=== PATIENT | male | born 1995 | race Caucasian/White ===

== ENCOUNTER 2017-07-23 09:43 | Emergency (ER) | payer BC ==
[~2017-07-23] VITALS: Ht 175.3 cm; Wt 79.4 kg
[2017-07-23 09:45] VITALS: BP 154/80
[2017-07-23] MEDS ORDERED: HYDR-971 PO (10:01)
[2017-07-23] MEDS ORDERED: NAPR-683 PO (10:01)
--- NOTE | 2017-07-23 10:06 | PHYS DOC ---
General Chief Complaint: LOWER EXT PAIN Stated Complaint: LOWER EXTREMITY PAIN Time Seen by MD: 09:45 Source: patient Exam Limitations: no limitations Problems: History of Present Illness Initial Comments Patient is 22-year-old male who comes to the ED complaining of right knee pain. Patient states that yesterday while walking he felt a pop followed by sharp pain in his right knee. He denies twisting or falling and has had no prior right knee issues. His right knee was sore after that, today he was walking down some stairs when he felt a pop in his knee tried to give out again. He does not have a PCP he left work to come here for evaluation. He denies numbness tingling weakness or radiating symptoms, states that he did not actually fall and has no other injuries. He doesn't notice any extra movement in the knee and has no swelling or bruising. He is able to bear weight on it pain is described as sharp and achy mild at rest and more severe with jarring and movement. Onset: yesterday Severity: moderate Pain/Injury Location: right knee Method of Injury: other Modifying Factors: worse with jarring, worse with movement, improves with rest Allergies: Coded Allergies: No Known Drug Allergies (Unverified , 07/23/17) Past Medical History Medical History: no pertinent history Surgical History: noncontributory Social History Smoker: cigarettes Alcohol: none Drugs: none Review of Systems Constitutional: denies chills, denies fever Respiratory: denies cough, denies shortness of breath Cardiovascular: denies chest pain, denies palpitations Gastrointestinal: denies abdominal pain, denies nausea, denies vomiting Musculoskeletal: see HPI Psychiatric/Neurological: see HPI Physical Exam General Appearance: WD/WN, no apparent distress Cardiovascular/Respiratory: normal peripheral pulses, no respiratory distress Knees: left knee non-tender, left knee normal inspection, bilateral knee normal range of motion, right knee other (no swelling or skin changes, there is lateral joint line tenderness and mild LCL tenderness. Collateral ligaments as well as cruciate ligaments are intact there is no bony tenderness or palpable bony deformities. The extremity is neurovascularly intact and no tendon deficit noted.) Neurologic/Tendon: normal sensation, normal motor functions, normal tendon functions, responds to pain, no evidence tendon injury Psychiatric: alert, oriented x 3 Skin: normal color, warm/dry Orders, Labs, Meds Patient is in agreement that plain films would be of little benefit as no actual trauma took place. 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 I discussed the likelihood of a lateral meniscus tear and conservative treatment. He will need follow-up with a PCP if symptoms did not improve as MRI may ultimately be necessary. Discussed [id number] prescription medications and his questions were answered expressed agreement and understanding of treatment plan. He was advised to stop smoking. Departure Time of Disposition: 10:03 Disposition: 01 HOME, SELF-CARE Diagnosis: Internal Derangement right knee NOS Condition: GOOD Patient Instructions: Knee - Cartilage (Meniscus) Injury, RICE - Routine Care for Injuries, [id number] Additional Instructions: As discussed is likely you have a tear or partial tear of the lateral meniscus. RICE, see handout. Wear knee immobilizer when you have to be up and ambulating. Avoid prolonged standing or walking for faster improvement in symptoms and to prevent further injury. Prescription: Naprosyn, Bigfoot 5 mg quantity 10 As discussed, if symptoms do not improve within 10-14 days you may need an MRI evaluation. Follow-up with a doctor in 2 weeks if not better. Return to ED with new or changing symptoms. RUSSEL VALENCIA DO Jul 23, 2017 10:06
== END 2017-07-23 10:16 | disposition home or self-care (01) ==
LOC: ER 09:43
DX: M23.91 Unspecified internal derangement of right knee (principal); F17.210 Nicotine dependence, cigarettes, uncomplicated; X50.9XXA Other and unspecified overexertion or strenuous movements or postures, initial encounter; Y93.01 Activity, walking, marching and hiking; Y99.8 Other external cause status; Y92.89 Other specified places as the place of occurrence of the external cause
CPT/HCPCS: 29505; 99283

== ENCOUNTER 2017-08-05 11:19 | Emergency (ER) | payer BC ==
[~2017-08-05] VITALS: Ht 175.3 cm; Wt 79.4 kg
[~2017-08-05 11:19] MED LIST: HYDR-971 PO; NAPR-683 PO
--- NOTE | 2017-08-05 12:02 | RAD ---
Right hand, 3 views, 08/05/2017: History: Hand pain, injury No fracture or dislocation is identified. There is moderate soft tissue swelling over the dorsum of the hand in the metacarpal region. IMPRESSION: No acute bony abnormality is detected.
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
[2017-08-05 13:23] VITALS: BP 110/78
== END 2017-08-05 13:24 | disposition home or self-care (01) ==
LOC: ER 11:19
DX: S60.221A Contusion of right hand, initial encounter (principal); V86.56XA Driver of dirt bike or motor/cross bike injured in nontraffic accident, initial encounter; Y93.55 Activity, bike riding; Y99.8 Other external cause status; Y92.89 Other specified places as the place of occurrence of the external cause
CPT/HCPCS: 29125; 73130; 99284

== ENCOUNTER 2017-12-20 08:13 | Emergency (ER) | payer SELFPAY ==
[~2017-12-20] VITALS: Ht 177.8 cm; Wt 79.4 kg
[2017-12-20] MEDS ORDERED: CEPH-264 PO (08:39)
[2017-12-20 08:42] VITALS: BP 142/62
--- NOTE | 2017-12-20 10:48 | ED.ADGEN ---
Past History Past Medical History: No Pertinent History Past Surgical History: No Surgical History Alcohol Use: None Drug Use: None Adult General Chief Complaint Chief Complaint Needlestick injury left foot HPI HPI Patient is a 32-year-old who presents with needle stick injury to left foot. Patient was walking in his primary yard when he actually stepped on a needle. Patient was able to remove the needle it is on how long the needle had been in the yard or to whom the needle belonged. [] Review of Systems Review of Systems ROS as per HPI All other systems were reviewed and found to be within normal limits, except as documented in this note. Allergies Allergies Allergies Coded Allergies Type Severity Reaction Last Updated Verified No Known Drug Allergies 07/23/17 No Physical Exam Physical Exam Constitutional: Well developed, well nourished, no acute distress, non-toxic appearance. [] Extremities: Left Plantar forefoot, callus, no abrasion bleeding or foreign body noted to be present. No swelling or redness.[] Neurologic: Alert and oriented X 3, normal motor function, normal sensory function, no focal deficits noted. [] Psychologic: Affect normal, judgement normal, mood normal. [] Current Patient Data Vital Signs Vital Signs Date Time Temp Pulse Resp B/P (MAP) Pulse Ox O2 Delivery O2 Flow Rate FiO2 12/20/17 08:42 98.0 84 20 142/62 (88) 96 EKG EKG [] Radiology/Procedures Radiology/Procedures [] Course & Med Decision Making Course & Med Decision Making Pertinent Labs and Imaging studies reviewed. (See chart for details) [Patient's tetanus status is firm to be up-to-date. I discussed with the patient the small risk of potential hepatitis and HIV exposure. Recommend outpatient testing by PCP in [address] a course of antibiotics for possible infection. ] Final Impression Final Impression [1. needle stick injury] Dragon Disclaimer Dragon Disclaimer This electronic medical record was generated, in whole or in part, using a voice recognition dictation system. TRUDY ZEPEDA DO Dec 20, 2017 10:48
== END 2017-12-20 08:40 | disposition home or self-care (01) ==
LOC: ER 08:13
DX: S99.822A Other specified injuries of left foot, initial encounter (principal); W46.0XXA Contact with hypodermic needle, initial encounter; Y93.89 Activity, other specified; Y99.8 Other external cause status; Y92.89 Other specified places as the place of occurrence of the external cause
CPT/HCPCS: 99283

== ENCOUNTER 2020-07-22 12:20 | Emergency (ER) | payer OTHER ==
[~2020-07-22] VITALS: Ht 177.8 cm; Wt 81.0 kg
[~2020-07-22 12:20] MED LIST changes: +CEPH-264 PO; +HYDR-3165 PO; -HYDR-971 PO
[2020-07-22 12:31] VITALS: BP 138/78
[2020-07-22] MEDS ORDERED: IBUP600T16 PO (12:45)
[2020-07-22] MEDS ORDERED: CYCL-331 PO (12:45)
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
[2020-07-22] MEDS ORDERED: HYDROcodone/APAP 5/325MG 1 TAB TABLET PO ONE (13:00)
[2020-07-22] MEDS ORDERED: KETOROLAC 60 MG/2 ML VIAL. IM ONE (13:00)
[2020-07-22] MEDS ORDERED: methylPREDNISolone ACETATE 80 MG/ML VIAL. IM ONE (13:00)
== END 2020-07-22 13:30 | disposition home or self-care (01) ==
LOC: ER 12:20
DX: M54.42 Lumbago with sciatica, left side (principal)
CPT/HCPCS: 96372; 99283; J1040; J1885

== ENCOUNTER → 2020-08-01 | Outpatient (CLI) | payer OTHER ==
[2020-07-22 12:31] VITALS: BP 138/78
[~2020-08-01] MED LIST changes: +CYCL-331 PO; +IBUP600T16 PO
--- NOTE | 2020-08-01 16:40 | RAD ---
EXAM: Left hip and pelvis, 3 views; lumbar spine, 5 views. HISTORY: Pain. COMPARISON: None. FINDINGS: Pelvis and left hip: A frontal view the pelvis and 2 views left hip are obtained. There is no fractur e, dislocation or subluxation. The femoral heads are normal in configuration. Lumbar spine: 5 views of the lumbar spine are obtained. There is no listhesis. There is minimal anter ior wedging of L1 which is chronic in appearance and likely developmental or degenerative. No acute f racture seen. IMPRESSION: No acute osseous finding. Electronically signed by: Aggie Osuna MD (08/01/2020 4:37 PM) [id number]
== END ==
LOC: RAD 16:14
PROVIDERS: ATTEND Physician Assistant Medical
DX: M25.552 Pain in left hip (principal); M53.3 Sacrococcygeal disorders, not elsewhere classified
CPT/HCPCS: 72110; 73502

== ENCOUNTER 2020-08-23 02:28 | Emergency (ER) | payer OTHER ==
[~2020-08-23] VITALS: Ht 175.3 cm; Wt 84.0 kg
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
[2020-08-23 02:43] VITALS: BP 149/88
[2020-08-23] MEDS ORDERED: KETOROLAC 60 MG/2 ML VIAL. IM ONE (02:45)
[2020-08-23] MEDS ORDERED: ORPHENADRINE CITRATE 60 MG/2 ML VIAL. IM ONE (02:45)
--- NOTE | 2020-08-23 03:22 | RAD ---
CT LUMBAR SPINE WO Date: 08/23/2020 2:52 AM Indication: Lt.hip and back pain Comparison: None. Technique: Helical CT images of the lumbar spine were obtained without contrast. Coronal and sagitta l reformatted images were also performed. One or more of the following dose reduction techniques were utilized: Automated exposure control (AEC), Adjustment of mA and/or kV according to patient size, Us e of iterative reconstruction technique such as ASiR, CT scan done according to ALARA and image gentl y/image wisely. Findings: The lumbar spine is normally aligned. No acute fracture. Vertebral body heights are maintained withou t compression deformity. No aggressive lytic or blastic osseous lesion. Moderate degenerative disc disease at L1-2. No high grade spinal canal stenosis or neuroforaminal lorelei rowing. No soft tissue abnormality within the visualized abdomen or pelvis. The visualized abdominal aorta is normal caliber. IMPRESSION: 1. No acute osseous abnormality of the lumbar spine. 2. Moderate degenerative disc disease at L1-2. No high-grade spinal canal stenosis or neural foramina l narrowing. Electronically signed by: Damon Ghosh MD (08/23/2020 3:19 AM) TERRY
--- NOTE | 2020-08-23 03:25 | RAD ---
CT PELVIS WO DATE: 08/23/2020 2:52 AM INDICATION: Lt.hip and back pain TECHNIQUE: Multidetector helical CT scan through the pelvis was performed. Coronal and sagittal 2 D r econstructions were generated. Images were reviewed on the PACS workstation at soft tissue and osseou s window settings. One or more of the following individualized dose reduction techniques were utilized for this examinat ion: 1. Automated exposure control 2. Adjustment of the mA and/or kV according to patient size 3. Use of iterative reconstruction technique COMPARISON: Radiograph 08/01/2020 FINDINGS: Bones: There is no acute fracture or dislocation. Joints: The joint spaces are normal. Soft tissues: No fluid collections or focal soft tissue swelling. IMPRESSION: No acute fracture. Electronically signed by: Damon Ghosh MD (08/23/2020 3:23 AM) [facility]
[2020-08-23] MEDS ORDERED: HYDR-1179 PO (03:30)
== END 2020-08-23 03:37 | disposition home or self-care (01) ==
LOC: ER 02:28
DX: M54.42 Lumbago with sciatica, left side (principal); M25.552 Pain in left hip
CPT/HCPCS: 72131; 72192; 96372; 99284; J1885; J2360

== ENCOUNTER 2021-01-10 23:31 | Emergency (ER) | payer SELFPAY ==
[~2021-01-10 23:31] MED LIST changes: +HYDR-1179 PO
[2021-01-11] MEDS ORDERED: ONDANSETRON PF 4 MG/2 ML VIAL. IVP ONE (00:20)
[2021-01-11] MEDS ORDERED: KETOROLAC 15 MG/ML VIAL. IVP ONE (00:20)
[2021-01-11] MEDS ORDERED: FAMOTIDINE 20 MG/2 ML VIAL IVP ONE (00:20)
[2021-01-11] MEDS ORDERED: KETOROLAC 15 MG/ML VIAL. ONE (00:47)
[2021-01-11] MEDS ORDERED: ONDANSETRON PF 4 MG/2 ML VIAL. ONE (00:47)
[2021-01-11] MEDS ORDERED: FAMOTIDINE 20 MG/2 ML VIAL ONE (00:47)
[2021-01-11] MEDS ORDERED: HYOSCYAMINE 0.125 MG TAB.RAPDIS PO ONE ×2 (01:25→01:38)
[2021-01-11 07:30] LABS: ALBUMIN 4.5 g/dL (3.4-5.0); CALCIUM 8.9 mg/dL (8.5-10.1); CREATININE 1.2 mg/dL (0.7-1.3); DIRECT BILIRUBIN 0.2 mg/dL (0.0-0.2); GFR 73.2; POTASSIUM 3.7 mmol/L (3.5-5.1); TOTAL BILIRUBIN 0.8 mg/dL (0.2-1.0); TOTAL PROTEIN 8.5 g/dL (6.4-8.2)
[2021-01-11 07:48] LABS: BASO % 1 % (0-3); EOS # 0.3 x10^3/uL (0.0-0.7); EOS % 3 % (0-3); HEMATOCRIT 50.8 % (39.0-53.0); HEMOGLOBIN 17.3 g/dL (13.0-17.5); LYMPH # 1.5 x10^3/uL (1.0-4.8); LYMPH % 17 % (24-48); MEAN CORPUSCULAR HEMOGLOBIN 30 pg (25-35); MEAN CORPUSCULAR HGB CONC 34 g/dL (31-37); MEAN CORPUSCULAR VOLUME 88 fL (79-100); MONO # 0.7 x10^3/uL (0.0-1.1); MONO % 8 % (0-9); NEUT # 6.3 x10^3uL (1.8-7.7); NEUT % 71 % (31-73); PLATELET COUNT 184 x10^3/uL (140-400); RED CELL DISTRIBUTION WIDTH 12.8 % (11.5-14.5); WHITE BLOOD COUNT 8.9 x10^3/uL (4.0-11.0)
[2021-01-11 07:54] LABS: BACTERIA,URINE 0 /HPF (0-FEW); BILIRUBIN,URINE NEG (NEG); CLARITY,URINE CLEAR; COLOR,URINE YELLOW; GLUCOSE,URINE NEG (NEG); NITRITE,URINE NEG (NEG); RBC,URINE 0 /HPF (0-2); SQUAMOUS EPITHELIAL CELL,UR OCC /LPF; UROBILINOGEN,URINE 0.2 mg/dL (0.2 mg/dL); WBC,URINE OCC /HPF (0-4)
--- NOTE | 2021-01-13 14:09 | NUR ---
IP: Informed pt of negative covid test. Pt verbalized understanding.
== END 2021-01-11 03:10 | disposition home or self-care (01) ==
LOC: ER 23:31
DX: R11.2 Nausea with vomiting, unspecified (principal); R19.7 Diarrhea, unspecified; Z20.822 Contact with and (suspected) exposure to COVID-19
CPT/HCPCS: 36415; 80048; 80076; 81001; 83690; 85025; 96374; 96375; 99284; J1885; J2405; J3490; U0005; 99283; U0003